=== PATIENT | female | born 1990 | race Caucasian/White ===

== ENCOUNTER → 2016-07-27 | Outpatient (CLI) | payer BC ==
[~2016-07-27] MED LIST: PRENTAB26 PO
== END | disposition home or self-care (01) ==
LOC: C.PAPS 14:50
PROVIDERS: ATTEND Obstetrics & Gynecology
DX: Z01.411 Encounter for gynecological examination (general) (routine) with abnormal findings (principal); R87.610 Atypical squamous cells of undetermined significance on cytologic smear of cervix (ASC-US)

== ENCOUNTER → 2016-07-27 | Outpatient (CLI) | payer BC ==
[2016-07-27 19:13] LABS: MEAN CELL VOLUME 90.1 fL (80-100); MEAN CORPUSCULAR HEMOGLOBIN 30.8 pg (25-34); MEAN CORPUSCULAR HGB CONC 34.1 g/dl (32-36); MEAN PLATELET VOLUME 9.9 fL (7.4-10.4); PLATELET COUNT 280 K/uL (130-400); RED BLOOD COUNT 4.55 M/uL (4.2-5.4); WHITE BLOOD COUNT 5.64 K/uL (4.8-10.8)
[2016-07-27 20:00] LABS: PREG INTERNAL NEGATIVE QC NEG CLEAR BACKGROUND; PREG INTERNAL POSITIVE QC POS CONTROL LINE
== END | disposition home or self-care (01) ==
LOC: C.LAB 17:38
PROVIDERS: ATTEND Obstetrics & Gynecology
DX: Z01.419 Encounter for gynecological examination (general) (routine) without abnormal findings (principal); N92.1 Excessive and frequent menstruation with irregular cycle

== ENCOUNTER → 2016-10-05 | Outpatient (CLI) | payer BC | END | disposition home or self-care (01) | LOC: C.PATHSPEC 15:47 | PROVIDERS: ATTEND Obstetrics & Gynecology | DX: N87.0 Mild cervical dysplasia (principal); N91.2 Amenorrhea, unspecified ==

== ENCOUNTER → 2016-10-05 | Outpatient (CLI) | payer BC ==
[2016-10-05 13:40] LABS: PREG INTERNAL NEGATIVE QC NEG CLEAR BACKGROUND; PREG INTERNAL POSITIVE QC POS CONTROL LINE
== END | disposition home or self-care (01) ==
LOC: C.LABSPEC 13:21
PROVIDERS: ATTEND Obstetrics & Gynecology
DX: N91.2 Amenorrhea, unspecified (principal)

== ENCOUNTER 2017-01-04 10:15 | Emergency (ER) | payer BC ==
[~2017-01-04] VITALS: Ht 165.1 cm; Wt 73.0 kg
[2017-01-04 10:28] VITALS: TEMP 36.8; Ht 165.1 cm; Wt 73.0 kg
[2017-01-04 10:39] VITALS: O2SAT 95
[2017-01-04 12:17] VITALS: PULSE 69; O2SAT 98
[2017-01-04 12:26] LABS: URINE APPEARANCE CLEAR (CLEAR); URINE BILIRUBIN NEG (NEG); URINE COLOR YELLOW; URINE NITRITE NEG (NEG); URINE PH 7.5 (4.5-7.5); URINE SPECIFIC GRAVITY 1.014 (1.000-1.030); UROBILINOGEN NEG (NEG)
[2017-01-04 12:27] LABS: COMPLETE YES; EOS % 0.1 %; HEMATOCRIT 43.5 % (37-47); IG% 0.2 %; LYMPH % 20.7 %; LYMPH ABS # 1.81 K/uL (1.2-3.4); MEAN CELL VOLUME 90.8 fL (80-100); MEAN CORPUSCULAR HEMOGLOBIN 31.9 pg (25-34); MEAN CORPUSCULAR HGB CONC 35.2 g/dl (32-36); MEAN PLATELET VOLUME 10.2 fL (7.4-10.4); MONO % 3.2 %; NEUT % 75.8 %; PLATELET COUNT 247 K/uL (130-400); RED BLOOD COUNT 4.79 M/uL (4.2-5.4); WHITE BLOOD COUNT 8.74 K/uL (4.8-10.8)
[2017-01-04 12:29] LABS: PROTHROMBIN TIME (PATIENT) 10.4 SECONDS (9.0-12.0)
[2017-01-04 12:35] LABS: MANUAL MICROSCOPIC REQUIRED? NO; REVIEW REQ? NO
[2017-01-04 12:46] LABS: ALT/SGPT 25 U/L (12-78); BLOOD UREA NITROGEN 9 mg/dl (7-18); BUN/CREATININE RATIO 10.5 (10-20); CALCIUM 9.6 mg/dl (8.5-10.1); CARBON DIOXIDE 26 mmol/L (21-32); CHLORIDE 107 mmol/L (98-107); CREATININE 0.87 mg/dl (0.60-1.20); GLUCOSE 92 mg/dl (70-99); POTASSIUM 3.8 mmol/L (3.5-5.1); SODIUM 139 mmol/L (136-145)
[2017-01-04 12:50] LABS: PREG INTERNAL NEGATIVE QC NEG CLEAR BACKGROUND; PREG INTERNAL POSITIVE QC POS CONTROL LINE
[2017-01-04 12:56] LABS: ALB/GLOB RATIO 0.9 (0.9-2); ALKALINE PHOSPHATASE 58 U/L (45-117); AST/SGOT 13 U/L (15-37); CKMB/CK RATIO 0.6 (0-3.0); THYROID STIMULATING HORMONE 0.904 uIu/ml (0.300-4.500)
[2017-01-04] MEDS ORDERED: SODIUM CHLORIDE 0.9% 1000ML 500 ML IV STA (13:18)
--- NOTE | 2017-01-04 13:19 | DIAGNOSTIC IMAGING REPORT ---
CHEST 2 VIEWS ROUTINE CLINICAL HISTORY: 26 years-old Female presenting with DIZZINESS, SYNCOPAL EPISODE . TECHNIQUE: PA and lateral views of the chest were obtained. COMPARISON: None. FINDINGS: Cardiomediastinal silhouette normal. Lungs and pleural spaces clear. Osseous structures normal. Upper abdomen normal. IMPRESSION: 1. No acute cardiopulmonary disease. Electronically signed by: Yvon Mooney M.D. 01/04/2017 1:17 PM Dictated Date/Time: 01/04/2017 1:17 PM
[2017-01-04] MEDS ORDERED: OPTIRAY 320 IV PRN (13:30)
--- NOTE | 2017-01-04 13:59 | DIAGNOSTIC IMAGING REPORT ---
(CHEST FOR PE) ANGIO WITH CLINICAL HISTORY: 26 years-old Female presenting with ^EVAL CHEST PAIN ^CHEST PAIN, SYNCOPE, ANXIETY. TECHNIQUE: Multidetector CT angiography of the chest was performed after administration of intravenous contrast. 3-D volumetric and/or maximum intensity projection (MIP) images were subsequently reconstructed for review. IV contrast: 88 mL of Optiray 320. A dose lowering technique was used consistent with the principles of ALARA (as low as reasonably achievable). COMPARISON: Chest x-ray performed earlier the same day. CT DOSE (mGy.cm): The estimated cumulative dose is 234.65 mGy.cm. FINDINGS: Pattern Cleaner topogram: Unremarkable. Pulmonary vasculature: The study is adequate for assessment of the pulmonary vascular tree. No filling defect within the pulmonary arteries to suggest embolus. Main pulmonary artery is not enlarged. No flattening of the interventricular septum. No intracardiac intracardiac filling defect. No reflux of contrast into the hepatic veins. Remaining chest: On soft tissue windows, normal thyroid and thoracic inlet. Residual thymic tissue. No axillary, supraclavicular, hilar, or mediastinal lymphadenopathy. Normal aorta. Normal heart size. No pericardial or pleural effusion. Upper abdomen normal. On lung windows, mild diffuse increased density of the lungs diffusely with a dependent gradient, possibly due to the phase of respiration and atelectasis. No focal infiltrate. Mosaic attenuation at the lung bases could suggest small airways disease. Large airways patent. On bone windows, gas in the left glenohumeral joint likely vacuum phenomenon possibly indicating joint laxity. Osseous structures otherwise normal. IMPRESSION: 1. No evidence of pulmonary embolus. 2. Possible reactive small airways disease. No focal infiltrate to suggest pneumonia. Electronically signed by: Yvon Mooney M.D. 01/04/2017 1:58 PM Dictated Date/Time: 01/04/2017 1:52 PM
--- NOTE | 2017-01-04 14:24 | EMERGENCY ROOM VISIT NOTE ---
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 pt states she needs a new primary to adjust her medications they are not working pt reports currently having menstrol and bleeds heavy, currently has flow two times a month pt is on birthcontrol History of Present Illness Patient is a 26-year-old white female with past medical history significant for anxiety, depression and menometrorrhagia who is brought to the emergency department by [facility] for evaluation of a syncopal episode at work today. Patient reports a history of anxiety and depression, but she stopped her Buspar and Effexor on her home about a month ago. She states that she fell at a were not helping. She is in between primary care providers as she has moved recently, and would like to become established with Dr. Henry, but has not been able to see him yet. The patient does admit that she has been experiencing increased anxiety and panic attacks recently, she reports being under a lot of stress due to "personal issues." Patient also reports a long- standing history of heavy, irregular menses. The site being on an oral contraceptive, she reports having her period 2 times per month. They're painful , heavy, and she states that she passes large clots. She is currently menstruating. She is being followed by Dr. Hilario for this, and it has been an issue for many years. Patient reports that yesterday she didn't feel well. He felt dizzy when she woke up to go to work, and felt like she was going to pass out. She stayed home from work, and reports she felt nauseous and had several episodes of vomiting yesterday. She has not eaten anything in over 24 hours. Today, she states that she still felt poorly but went into work. Around 9:30, she states that she stood from her desk chair and felt dizzy. She states that she started to feel like she was falling backwards, states that her vision went black, and she went down to the ground where her coworkers say that her eyes rolled back in her head slightly. She states that she was only out for a few seconds and when she came to, she was shaky and had broken out in a cold sweat. She states that she felt back to her baseline after about 5-7 minutes. There was no seizure-like activity including tonic-clonic movements, tongue biting or incontinence. She states that she did have some chest pressure and shortness of breath associated with the syncopal episode, but she believes that this was because of the anxiety. She feels like her symptoms are entirely anxiety related. There is no prior history of syncope other than one incident when she was . She has not eaten today. BSG was not checked en route. At the present time the patient has no complaints. Review of Systems Review of systems as per HPI. All other systems reviewed were negative. 10 systems reviewed. Past Medical/Surgical History Medical Problems: (1) Anxiety and depression (2) Excessive And Frequent Menstruation With Irregular Cycle (3) Headache (4) Nausea, vomiting, and diarrhea (5) Pelvic pressure in (6) Syncope Surgical Problems: (1) History of tonsillectomy and adenoidectomy (2) History of wisdom tooth extraction Electronic medical records are reviewed and summarized as above/below. See Problem List. Family History FH: brain aneurysm Social History Smoking Status: Former Smoker Alcohol Use: none Marital Status: in relationship Occupation Status: employed Current/Historical Medications Scheduled Multivit/Min/Iron/Fol Ac/Pren ( Vitamin), 1 TAB PO DAILY Physical Exam Vital Signs Date Time Temp Pulse Resp B/P (MAP) Pulse Ox O2 Delivery O2 Flow Rate FiO2 01/04/17 14:58 122/76 01/04/17 12:17 69 124/84 131/95 141/95 01/04/17 12:17 69 18 124/84 98 Room Air 01/04/17 10:39 95 Room Air 01/04/17 10:28 36.8 79 18 127/85 95 Room Air 01/04/17 10:23 83 Physical Exam CONSTITUTIONAL: Patient is a pleasant, well-appearing 26-year-old white female who is awake and alert and in no acute distress. EYES: Pupils equal, round, reactive to light and accommodation. EOMs intact without nystagmus. Sclera are anicteric. ENT: Tympanic membranes intact, with normal landmarks. External canals are clear. Oral and nasopharynx are clear. Mucous membranes are moist, no lesions , tongue and gums appear normal. NECK: No bruits auscultated. Supple without lymphadenopathy. No thyromegaly. No meningeal signs. Full active range of motion without discomfort. CARDIOVASCULAR: Regular rate and rhythm, with normal S1 and S2, no murmur or gallop or rub is heard. No carotid bruits auscultated. No JVD. Peripheral pulses easy to palpable. RESPIRATORY: Breath sounds equal and clear to auscultation without wheezes, rales, or rhonchi heard. Full and equal chest expansion without accessory muscle use or retractions. GI: Bowel sounds are present. Abdomen is soft, nontender, nondistended. No organomegaly. No pulsatile masses. No guarding or rebound. MUSCULOSKELETAL: Full range of motion of extremities x 4 with good strength. No cyanosis, edema, joint tenderness or swelling. No deformity. INTEGUMENTARY: No lesions or rash, normal skin turgor. NEUROLOGICAL: Alert, oriented, and cooperative. Cranial nerves, sensation and strength grossly intact. Pupils round, equal, and react to light, EOMs are full. Upper and lower extremity DTRs are equal and symmetrical bilaterally. Negative Romberg and pronator chest. Finger to nose and rapid alternating movements are intact. Normal gait. LYMPH: No lymphadenopathy. Medical Decision & Procedures ER Provider Diagnostic Interpretation: CHEST FOR PE) ANGIO WITH CLINICAL HISTORY: 26 years-old Female presenting with ^EVAL CHEST PAIN ^CHEST PAIN, SYNCOPE, ANXIETY. TECHNIQUE: Multidetector CT angiography of the chest was performed after administration of intravenous contrast. 3-D volumetric and/or maximum intensity projection (MIP) images were subsequently reconstructed for review. IV contrast: 88 mL of Optiray 320. A dose lowering technique was used consistent with the principles of ALARA (as low as reasonably achievable). COMPARISON: Chest x-ray performed earlier the same day. CT DOSE (mGy.cm): The estimated cumulative dose is 234.65 mGy.cm. FINDINGS: Tray Service Worker topogram: Unremarkable. Pulmonary vasculature: The study is adequate for assessment of the pulmonary vascular tree. No filling defect within the pulmonary arteries to suggest embolus. Main pulmonary artery is not enlarged. No flattening of the interventricular septum. No intracardiac intracardiac filling defect. No reflux of contrast into the hepatic veins. Remaining chest: On soft tissue windows, normal thyroid and thoracic inlet. Residual thymic tissue. No axillary, supraclavicular, hilar, or mediastinal lymphadenopathy. Normal aorta. Normal heart size. No pericardial or pleural effusion. Upper abdomen normal. On lung windows, mild diffuse increased density of the lungs diffusely with a dependent gradient, possibly due to the phase of respiration and atelectasis. No focal infiltrate. Mosaic attenuation at the lung bases could suggest small airways disease. Large airways patent. On bone windows, gas in the left glenohumeral joint likely vacuum phenomenon possibly indicating joint laxity. Osseous structures otherwise normal. IMPRESSION: 1. No evidence of pulmonary embolus. 2. Possible reactive small airways disease. No focal infiltrate to suggest pneumonia. CHEST 2 VIEWS ROUTINE CLINICAL HISTORY: 26 years-old Female presenting with DIZZINESS, SYNCOPAL EPISODE . TECHNIQUE: PA and lateral views of the chest were obtained. COMPARISON: None. FINDINGS: Cardiomediastinal silhouette normal. Lungs and pleural spaces clear. Osseous structures normal. Upper abdomen normal. IMPRESSION: 1. No acute cardiopulmonary disease. Laboratory Results 01/04/17 12:00 Red Blood Count 4.79, Mean Corpuscular Volume 90.8, Mean Corpuscular Hemoglobin 31.9, Mean Corpuscular Hemoglobin Concent 35.2, Mean Platelet Volume 10.2, Neutrophils (%) (Auto) 75.8, Lymphocytes (%) (Auto) 20.7, Monocytes (%) (Auto) 3.2, Eosinophils (%) (Auto) 0.1, Basophils (%) (Auto) 0.0, Neutrophils # (Auto) 6.62, Lymphocytes # (Auto) 1.81, Monocytes # (Auto) 0.28, Eosinophils # (Auto) 0.01, Basophils # (Auto) 0.00 01/04/17 12:00 Test 01/04/17 12:00 01/04/17 12:15 White Blood Count 8.74 K/uL (4.8-10.8) Red Blood Count 4.79 M/uL (4.2-5.4) Hemoglobin 15.3 g/dL (12.0-16.0) Hematocrit 43.5 % (37-47) Mean Corpuscular Volume 90.8 fL (80-100) Mean Corpuscular Hemoglobin 31.9 pg (25-34) Mean Corpuscular Hemoglobin Concent 35.2 g/dl (32-36) Platelet Count 247 K/uL (130-400) Mean Platelet Volume 10.2 fL (7.4-10.4) Neutrophils (%) (Auto) 75.8 % Lymphocytes (%) (Auto) 20.7 % Monocytes (%) (Auto) 3.2 % Eosinophils (%) (Auto) 0.1 % Basophils (%) (Auto) 0.0 % Neutrophils # (Auto) 6.62 K/uL (1.4-6.5) Lymphocytes # (Auto) 1.81 K/uL (1.2-3.4) Monocytes # (Auto) 0.28 K/uL (0.11-0.59) Eosinophils # (Auto) 0.01 K/uL (0-0.5) Basophils # (Auto) 0.00 K/uL (0-0.2) RDW Standard Deviation 40.5 fL (36.4-46.3) RDW Coefficient of Variation 12.1 % (11.5-14.5) Immature Granulocyte % (Auto) 0.2 % Immature Granulocyte # (Auto) 0.02 K/uL (0.00-0.02) Prothrombin Time 10.4 SECONDS (9.0-12.0) Prothromb Time International Ratio 1.0 (0.9-1.1) Activated Partial Thromboplast Time 27.1 SECONDS (21.0-31.0) Partial Thromboplastin Ratio 1.0 Urine Color YELLOW Urine Appearance CLEAR (CLEAR) Urine pH 7.5 (4.5-7.5) Urine Specific [place] 1.014 (1.000-1.030) Urine Protein NEG (NEG) Urine Glucose (UA) NEG (NEG) Urine Ketones NEG (NEG) Urine Occult Blood NEG (NEG) Urine Nitrite NEG (NEG) Urine Bilirubin NEG (NEG) Urine Urobilinogen NEG (NEG) Urine Leukocyte Esterase NEG (NEG) Anion Gap 7.0 mmol/L (3-11) Est Creatinine Clear Calc Drug Dose 98.1 ml/min Estimated GFR () 106.6 Estimated GFR (Non- 91.9 BUN/Creatinine Ratio 10.5 (10-20) Calcium Level 9.6 mg/dl (8.5-10.1) Total Bilirubin 0.4 mg/dl (0.2-1) Aspartate Amino Transf (AST/SGOT) 13 U/L (15-37) Alanine Aminotransferase (ALT/SGPT) 25 U/L (12-78) Alkaline Phosphatase 58 U/L (45-117) Total Creatine Kinase 122 U/L (26-192) Creatine Kinase MB 0.7 ng/ml (0.5-3.6) Creatine Kinase MB Ratio 0.6 (0-3.0) Troponin I < 0.015 ng/ml (0-0.045) Total Protein 8.7 gm/dl (6.4-8.2) Albumin 4.0 gm/dl (3.4-5.0) Globulin 4.7 gm/dl (2.5-4.0) Albumin/Globulin Ratio 0.9 (0.9-2) Thyroid Stimulating Hormone (TSH) 0.904 uIu/ml (0.300-4.500) Human Chorionic Gonadotropin, Qual NEG (NEG) Bedside D-Dimer > 450 ng/mlFEU (0-450) Medications Administered Medications (Trade) Dose Ordered Sig/Damien Route Start Time Stop Time Status Last Admin Dose Admin Sodium Chloride 500 ml @ 999 mls/hr Q31M STAT IV 01/04/17 13:18 01/04/17 13:48 DC 01/04/17 13:18 999 MLS/HR ECG Indication: syncope Rate (beats per minute): 68 Rhythm: sinus with SA Findings: no acute ischemic change, no ectopy Change: no significant change ED Course The patient was seen and evaluated as above. Her old records are reviewed. She presents the emergency department for evaluation of a syncopal episode at work today, in the setting of heavy, irregular menstruation, and an episode of nausea and vomiting 24 hours yesterday. She also reports being under increased stress and has been off of her anxiety and depression medications. She feels that a panic attack may have also played a role in her symptoms this morning. Patient was not orthostatic with vitals. IV lock was initiated. Laboratory studies were collected including CBC with differential, coags, cardiac enzymes, TSH, serum hCG and a [id number] d- dimer. EKG was performed and was as noted above. Chest x-ray was obtained and was unremarkable. Laboratory studies noted a normal white count of the 8700. H&H is 15.3 and 43.5. Platelets and coags are normal. [id number] d-dimer is greater than 450. Electrolytes, renal functions and liver functions are within normal limits. Cardiac enzymes are negative 1. Serum hCG is negative. TSH is indicative of a euthyroid state. Urinalysis completely clear. Given the elevated d-dimer, syncope with associated chest pain and shortness of breath, chest CT with contrast was performed to evaluate for PE, and was negative. The patient was given a liter of normal saline solution IV bolus prior to CT scan. All laboratory and diagnostic imaging studies were reviewed with the patient. I suspect her symptoms today are multifactorial, certainly could be an anxiety/ panic component. Possibility of her being dehydrated or anemic due to her heavy menstruation, and her nausea and vomiting from yesterday was entertained. Differential also includes, seizure, arrhythmia, acute coronary syndrome, orthostasis, dehydration, electrolyte abnormalities, anemia, hypoglycemia, among others. Patient reports that she is planning to become established with Dr. Henry, but has not been able to secure an appointment at this time. She was encouraged to follow-up with him for review of the ED visit, and to discuss her psychiatric medications for better control of her symptoms. She is presently established with gynecology for her excessive menstruation. The patient was discharged home in stable condition accompanied by family members. Medical Decision See ED Course. Medication Reconcilliation Current Medication List: was personally reviewed by me Blood Pressure Screening Patient's blood pressure: Normal blood pressure Blood pressure disposition: Did not require urgent referral Impression Primary Impression: Syncope Departure Information Referrals Salima Rosen M.D. (PCP) Patient Instructions My [employer] Additional Instructions Rest and drink plenty of fluids as tolerated. Continue current medications. Eat a heart healthy, low fat, low cholesterol diet. Return to the ER immediately for passing out, headache, rapid heart rates, chest pains, difficulty breathing, black or bloody stools, slurred speech, numbness, weakness, visual changes, worsening of your condition, or as needed. Refrain from dangerous activities, operating machinery, drinking alcohol, and such until you are rechecked at a follow up appointment. Follow up with your primary physician in 2-3 days for a recheck of your current condition.
[2017-01-04 14:58] VITALS: BP 122/76
== END 2017-01-04 14:35 | disposition home or self-care (01) ==
LOC: EDBD 10:15 → EDSEX 10:15 → C.EDA 10:16
DX: R55 Syncope and collapse (principal); F41.9 Anxiety disorder, unspecified; F32.9 Major depressive disorder, single episode, unspecified; N92.1 Excessive and frequent menstruation with irregular cycle; Z79.3 Long term (current) use of hormonal contraceptives; Z87.891 Personal history of nicotine dependence; Z82.49 Family history of ischemic heart disease and other diseases of the circulatory system

== ENCOUNTER → 2017-01-23 | Outpatient (CLI) | payer BC ==
[2017-01-23 15:42] LABS: BASO % 0.1 %; BASO ABS # 0.01 K/uL (0-0.2); COMPLETE YES; EOS % 0.7 %; HEMATOCRIT 37.3 % (37-47); IG% 0.1 %; LYMPH % 38.2 %; LYMPH ABS # 2.84 K/uL (1.2-3.4); MEAN CELL VOLUME 90.5 fL (80-100); MEAN CORPUSCULAR HEMOGLOBIN 31.6 pg (25-34); MEAN CORPUSCULAR HGB CONC 34.9 g/dl (32-36); MEAN PLATELET VOLUME 10.4 fL (7.4-10.4); MONO % 5.7 %; NEUT % 55.2 %; PLATELET COUNT 194 K/uL (130-400); RED BLOOD COUNT 4.12 M/uL (4.2-5.4); WHITE BLOOD COUNT 7.43 K/uL (4.8-10.8)
[2017-01-23 16:23] LABS: FERRITIN 30.7 ng/ml (8.0-388.0); THYROID STIMULATING HORMONE 0.638 uIu/ml (0.300-4.500)
== END | disposition home or self-care (01) ==
LOC: C.LAB 14:57
DX: R53.83 Other fatigue (principal); D64.9 Anemia, unspecified

== ENCOUNTER → 2017-04-17 | Outpatient (CLI) | payer OTHER ==
[2017-04-17 16:53] LABS: BASO % 0.2 %; BASO ABS # 0.01 K/uL (0-0.2); EOS ABS # 0.06 K/uL (0-0.5); HEMATOCRIT 39.4 % (37-47); HEMOGLOBIN 13.6 g/dL (12.0-16.0); LYMPH ABS # 1.75 K/uL (1.2-3.4); MEAN CELL VOLUME 92.9 fL (80-100); MEAN CORPUSCULAR HEMOGLOBIN 32.1 pg (25-34); MEAN CORPUSCULAR HGB CONC 34.5 g/dl (32-36); MEAN PLATELET VOLUME 9.9 fL (7.4-10.4); MONO % 8.9 %; MONO ABS # 0.56 K/uL (0.11-0.59); NEUT % 61.9 %; NEUT ABS # 3.88 K/uL (1.4-6.5); PLATELET COUNT 211 K/uL (130-400); RED CELL DISTRIBUTION WIDTH SD 43.9 fL (36.4-46.3); WHITE BLOOD COUNT 6.26 K/uL (4.8-10.8)
== END | disposition home or self-care (01) ==
LOC: C.LAB 15:46
DX: D64.9 Anemia, unspecified (principal); R55 Syncope and collapse

== ENCOUNTER 2018-11-26 18:45 | Inpatient (IN) ==
[2018-11-26] MEDS ORDERED: SODIUM CHLORIDE 0.9% 1000ML 2,000 ML IV ONE (19:53)
[2018-11-26] MEDS ORDERED: KETOROLAC TROMETHAMINE 15 MG/ML VIAL IV STA ×2 (19:53→21:32)
[2018-11-26] MEDS ORDERED: ACETAMINOPHEN 1,000 MG/100 ML VIAL IV STA (19:53)
[2018-11-26] MEDS ORDERED: MoRPHine SULFATE 10 MG/ML CARP/VIAL IV STA ×3 (19:53→22:31)
[2018-11-26] MEDS ORDERED: ONDANSETRON INJ 2 MG/ML 2 ML VIAL IV STA (20:00)
[2018-11-26 20:33] LABS: Basophils # (auto) 0.01 K/uL (0-0.2); Basophils % (auto) 0.1 %; Eosinophils # (auto) 0.08 K/uL (0-0.5); Eosinophils % (auto) 0.6 %; Hematocrit (blood only) 38.5 % (37-47); Hemoglobin 14.2 g/dL (12.0-16.0); Immature Granulocytes # (auto) 0.03 K/uL (0.00-0.02); Immature Granulocytes % (auto) 0.2 %; Lymphocytes % (auto) 14.5 %; Mean Corpuscular Hemoglobin 33.6 pg (25-34); Mean Corpuscular Hgb Conc 36.9 g/dL (32-36); Mean Platelet Volume 10.3 fL (7.4-10.4); Monocytes # (auto) 1.13 K/uL (0.11-0.59); Monocytes % (auto) 8.2 %; Neutrophils % (auto) 76.4 %; Platelet Count 208 K/uL (130-400); RDW Coefficient of Variation 11.9 % (11.5-14.5); RDW Standard Deviation 40.1 fL (36.4-46.3); Red Blood Count 4.23 M/uL (4.2-5.4); White Blood Count 13.75 K/uL (4.8-10.8)
[2018-11-26 20:37] LABS: Appearance Urine Cloudy (Clear); Bacteria Urine Automated 4+ (Negative); Bilirubin Urine Negative (Negative); Blood Urine 3+ (Negative); Color Urine Yellow; Glucose Urine UA Negative (Negative); Ketones Urine Negative (Negative); Leukocyte Esterase Urine 2+ (Negative); Nitrite Urine Negative (Negative); Protein Urine 2+ (Negative); Urobilinogen Urine Negative (Negative); WBC Urine Automated >30 /hpf (0-5); pH Urine 5.5 (4.5-7.5)
[2018-11-26 20:42] LABS: iSTAT Creatinine 0.7 mg/dl (0.6-1.3); iSTAT Hemoglobin 14.6 g/dl (12.0-16.0); iSTAT Ionized Calcium 1.2 mmol/l (1.12-1.32); iSTAT Potassium 3.5 mEq/L (3.3-5.0)
[2018-11-26 20:53] LABS: Albumin Level 4.3 gm/dl (3.4-5.0); BUN Creatinine Ratio 11.5 (10-20); Calcium 9.2 mg/dl (8.5-10.1); Creatinine Clr Calc Pharmacy 91.9 ml/min; Est GFR (African American) 112.9; Est GFR (Non-African American) 97.4; Potassium 3.4 mmol/L (3.5-5.1); Pregnancy Test, Serum Negative (Negative)
[2018-11-26 20:57] LABS: Bilirubin,Total 0.9 mg/dl (0.2-1); Globulin 4.4 gm/dl (2.5-4.0); Total Protein 8.7 gm/dl (6.4-8.2)
[2018-11-26] MEDS ORDERED: IOVERSOL 100ml IV PRN (21:36)
[2018-11-26] MEDS ORDERED: ONDANSETRON 4 MG OD TAB PO STA (22:17)
[2018-11-26] MEDS ORDERED: ONDANSETRON INJ 2 MG/ML 2 ML VIAL IV PRN (22:20)
--- NOTE | 2018-11-26 22:21 | CT Scan Report ---
CT SCAN OF THE ABDOMEN AND PELVIS WITH IV CONTRAST CLINICAL HISTORY: Right flank pain. COMPARISON STUDY: Abdominal CT dated 05/24/2012. TECHNIQUE: Following the IV administration of 90 cc of Optiray 320, CT scan of the abdomen and pelvi s is performed from the lung bases to the proximal femora. Images are reviewed in the axial, sagittal , and coronal planes. IV contrast was administered without complication. A dose lowering technique wa s utilized adhering to the principles of ALARA. CT DOSE: 278.75 mGy.cm FINDINGS: Lung bases: The heart is normal in size and without pericardial effusion. The lung bases are clear. Liver: The contrast-enhanced liver is normal in size, contour, and attenuation. There is no intrahepa tic biliary ductal dilatation. The hepatic veins and portal veins are patent. Mild periportal edema i s likely related to hydration status. Gallbladder: Unremarkable. Spleen: Normal in size and attenuation. Pancreas: Unremarkable. Adrenal glands: Unremarkable. Kidneys: The contrast enhanced kidneys are normal in size and without hydronephrosis. There is hetero geneous enhancement of the right kidney with a striated nephrogram. Mild urothelial thickening and en hancement is noted in the right renal pelvis and involving the right ureter. The left kidney enhances homogeneously. Abdominal vasculature: The abdominal aorta is normal in course and caliber. Bowel: The small bowel and colon are normal in course and caliber. The appendix is normal as visuali zed. Peritoneum: There is no intraperitoneal free air or abdominal ascites. Lymphadenopathy: None. Pelvic viscera: The bladder wall appears thickened and hyperemic and there is pericystic inflammation . The uterus and adnexa are normal as visualized. There are bilateral ovarian follicles. Nonspecific free fluid is noted in the cul-de-sac. Skeletal structures: No lytic or blastic lesions are seen. IMPRESSION: 1. Findings suggest cystitis and right-sided pyelonephritis. Correlation with clinical findings and u rinalysis will be required. 2. Nonspecific free fluid in cul-de-sac is likely within physiologic limits. Electronically signed by: Isrrael Mathew M.D. 11/26/2018 10:19 PM
[2018-11-26] MEDS ORDERED: cefTRIAXone SODIUM 2,000 MG/70 ML BAG IV STA (22:31)
[2018-11-26] MEDS ORDERED: PROCHLORPERAZINE 2 ML IV ONE (23:08)
--- NOTE | 2018-11-27 01:12 | History & Physical Report ---
Date of Service November 27, 2018 Assessment & Plan (1) Pyelonephritis: Patient afebrile, hemodynamically stable. She has significant symptoms, pain and nausea - received Morphine x 12 mg and Toradol x 15mg thus far -Observation to medical floor -Follow cultures, urine and blood sent from ER -Ceftriaxone 1gm IV daily -Morphine 2mg IV q 4 hours as needed -Toradol 15mg IV q 6 hours PRN -Tylenol PRN F/E/N - NSS at 125mL/hr x 2 liters, monitor electrolytes and replete as needed, regular diet as tolerated Ppx - Low risk for DVT Code - Full Dispo - Observation to medical floor Present on Admission?: Yes History of Present Illness Chief Complaint: Pyelonephritis Primary Care Provider: Ceasar Henry Jr, DO Beatrice Farrar is a pleasant 28yo C female presenting with pyelonephritis. She had a few days of increased urinary frequency, no dysuria/hematuria. She developed right flank pain on 11/25/18 which progressively worsened. This AM her pain was very severe, 11/15. She also had nausea with multiple episodes of non-bloody/non-bilious vomiting, chills/sweats, elevated body temperature to 100. She tried to go to work but was unable to complete the day due to her symptoms. She was started on Nitrofurantoin yesterday, took 1 dose thus far. On arrival to the ER she was found to be afebrile, slightly tachycardic at 102 bpm and hypertensive at 159/100. She had severe pain and nausea requiring multiple doses of IV pain medication and anti-emetics. Pain presently improved. No additional complaints at this time. No fevers/chill/sweats, no headache/chest pain/SOB/palpitations/abdominal pain/diarrhea/constipation ER Course: Morphine 6mg IV x 2, Toradol 15mg IV x 2, Tylenol 1gm IV x 1, Zofran 4mg IV x 2, Prochlorperazine, Ceftriaxone x 2gm, NSS Allergies Allergy/AdvReac Type Severity Reaction Status Date / Time No Known Allergies Allergy Verified 11/26/18 19:45 Home Medications Home Medications Medication Instructions Recorded Confirmed Type nitrofurantoin macrocrystal 100 mg PO BID 11/26/18 11/26/18 History Past Med/Surg History Medical History ASCUS with positive high risk HPV cervical Goiter H/O varicella Positive GBS test Surgical History H/O oral surgery History of conization of cervix History of lingual frenotomy S/P dilation and curettage S/P tonsillectomy Family History Mother Colorectal cancer Thyroid disease Grandmother (Maternal) Lung cancer Father Kidney stones Other Cleft palate Social History Preferred Language: Vietnamese Feels Safe at Home: Yes Smoking Status: Current every day smoker Tobacco Type: cigarettes ; packs per day: 0.5 ; Cigarettes Per Day: 10 ; Hx Alcohol Use: Yes Alcohol Intake Frequency: Holidays/Special Occasions Hx Substance Use: No Review of Systems Review of Systems: All systems reviewed & are unremarkable except as noted in HPI & below Physical Exam Physical Exam: General: patient resting comfortably, NAD, non-toxic in appearance, AA&O x 4 Skin: warm, dry, intact, no rashes or lesions HEENT: NC/AT, PERRL, EOMI, anicteric sclera, conjunctiva without injection, ext ernal ear normal to inspection and nontender, nares patent, moist mucus membranes, dentition intact, no oropharyngeal lesions, neck supple, trachea midline, no LAD, no thyromegaly, no JVD Heart: +S1/S2, regular, no m/r/g Lungs: equal air entry bilaterally, no rales/rhonchi/wheezes Abd: +BS, soft, NT/ND, no masses/organomegaly/ascites, +CVA tenderness on right Ext: warm, 2+ pulses in UE/LE bilaterally, no clubbing/cyanosis or edema Neuro: nonfocal, patient AA&O x 4, speech intact, no facial droop, moving all extremities on command with equal strength 5/5 Results & Data Vital Signs (Past 12 Hours) Vital Signs Temp Pulse Pulse Resp BP BP Pulse Ox 11/26/18 23:27 63 18 122/84 97 11/26/18 21:09 89 20 110/73 98 11/26/18 20:25 84 18 136/79 98 11/26/18 18:54 36.9 C 102 H 18 159/100 H 100 Laboratory Results Lab Results 11/26/18 11/26/18 11/26/18 Range/Units 20:10 20:10 20:20 WBC 13.75 H (4.8-10.8) K/uL RBC 4.23 (4.2-5.4) M/uL Hgb 14.2 (12.0-16.0) g/dL POC Hgb (12.0-16.0) g/dl Hct 38.5 (37-47) % POC Hct (37-47) % MCV 91.0 (80-100) fL MCH 33.6 (25-34) pg MCHC 36.9 H (32-36) g/dL RDW Std Deviation 40.1 (36.4-46.3) fL RDW Coeff of David 11.9 (11.5-14.5) % Plt Count 208 (130-400) K/uL MPV 10.3 (7.4-10.4) fL Immature Gran % (Auto) 0.2 % Neut % (Auto) 76.4 % Lymph % (Auto) 14.5 % [place] % (Auto) 8.2 % Eos % (Auto) 0.6 % Baso % (Auto) 0.1 % Immature Gran # (Auto) 0.03 H (0.00-0.02) K/uL Neut # (Auto) 10.50 H (1.4-6.5) K/uL Lymph # (Auto) 2.00 (1.2-3.4) K/uL [place] # (Auto) 1.13 H (0.11-0.59) K/uL Eos # (Auto) 0.08 (0-0.5) K/uL Baso # (Auto) 0.01 (0-0.2) K/uL POC Sodium (135-144) mEq/L Sodium (136-145) mmol/L POC Potassium (3.3-5.0) mEq/L Potassium (3.5-5.1) mmol/L POC Chloride (101-112) mEq/L Chloride (98-107) mmol/L Carbon Dioxide (21-32) mmol/L POC Total CO2 (24-31) mEq/l Anion Gap (3-11) POC Anion Gap (16-25) mmol/L POC BUN (7-18) mg/dl BUN (7-18) mg/dl Creatinine (0.6-1.2) mg/dl POC Creatinine (0.6-1.3) mg/dl Est Cr Clr Drug Dosing ml/min Est GFR ( Amer) Est GFR (Non-Af Amer) BUN/Creatinine Ratio (10-20) Glucose (70-99) mg/dl POC Glucose (other) (70-99) mg/dl Lactate (0.4-2.0) mmol/L Calcium (8.5-10.1) mg/dl POC Ioniz Calcium Danny (1.12-1.32) mmol/l Total Bilirubin (0.2-1) mg/dl AST (15-37) U/L ALT (12-78) U/L Alkaline Phosphatase (45-117) U/L Total Protein (6.4-8.2) gm/dl Albumin (3.4-5.0) gm/dl Globulin (2.5-4.0) gm/dl Albumin/Globulin Ratio (0.9-2) Lipase (73-393) U/L HCG, Qual (Negative) Urine Color Yellow Urine Appearance Cloudy A (Clear) Urine pH 5.5 (4.5-7.5) Ur Specific [place] 1.020 (1.000-1.030) Urine Protein 2+ H (Negative) Urine Glucose (UA) Negative (Negative) Urine Ketones Negative (Negative) Urine Blood 3+ H (Negative) Urine Nitrite Negative (Negative) Urine Bilirubin Negative (Negative) Urine Urobilinogen Negative (Negative) Ur Leukocyte Esterase 2+ H (Negative) Urine WBC (Auto) >30 H (0-5) /hpf Urine RBC (Auto) 10-30 H (0-4) /hpf U Hyaline Cast (Auto) 10-30 H (0-5) /lpf U Epithel Cells (Auto) 5-10 H (0-5) /lpf Urine Bacteria (Auto) 4+ H (Negative) POC Ur Test NEG (NEG) 11/26/18 11/26/18 11/26/18 Range/Units 20:20 20:20 20:26 WBC (4.8-10.8) K/uL RBC (4.2-5.4) M/uL Hgb (12.0-16.0) g/dL POC Hgb 14.6 (12.0-16.0) g/dl Hct (37-47) % POC Hct 43 (37-47) % MCV (80-100) fL MCH (25-34) pg MCHC (32-36) g/dL RDW Std Deviation (36.4-46.3) fL RDW Coeff of David (11.5-14.5) % Plt Count (130-400) K/uL MPV (7.4-10.4) fL Immature Gran % (Auto) % Neut % (Auto) % Lymph % (Auto) % [place] % (Auto) % Eos % (Auto) % Baso % (Auto) % Immature Gran # (Auto) (0.00-0.02) K/uL Neut # (Auto) (1.4-6.5) K/uL Lymph # (Auto) (1.2-3.4) K/uL [place] # (Auto) (0.11-0.59) K/uL Eos # (Auto) (0-0.5) K/uL Baso # (Auto) (0-0.2) K/uL POC Sodium 140 (135-144) mEq/L Sodium 137 (136-145) mmol/L POC Potassium 3.5 (3.3-5.0) mEq/L Potassium 3.4 L (3.5-5.1) mmol/L POC Chloride 106 (101-112) mEq/L Chloride 105 (98-107) mmol/L Carbon Dioxide 25 (21-32) mmol/L POC Total CO2 23 L (24-31) mEq/l Anion Gap 7.0 (3-11) POC Anion Gap 16.0 (16-25) mmol/L POC BUN 8 (7-18) mg/dl BUN 10 (7-18) mg/dl Creatinine 0.82 (0.6-1.2) mg/dl POC Creatinine 0.7 (0.6-1.3) mg/dl Est Cr Clr Drug Dosing 91.9 ml/min Est GFR ( Amer) 112.9 Est GFR (Non-Af Amer) 97.4 BUN/Creatinine Ratio 11.5 (10-20) Glucose 97 (70-99) mg/dl POC Glucose (other) 99 (70-99) mg/dl Lactate (0.4-2.0) mmol/L Calcium 9.2 (8.5-10.1) mg/dl POC Ioniz Calcium Danny 1.20 (1.12-1.32) mmol/l Total Bilirubin 0.9 (0.2-1) mg/dl AST 12 L (15-37) U/L ALT 22 (12-78) U/L Alkaline Phosphatase 70 (45-117) U/L Total Protein 8.7 H (6.4-8.2) gm/dl Albumin 4.3 (3.4-5.0) gm/dl Globulin 4.4 H (2.5-4.0) gm/dl Albumin/Globulin Ratio 1.0 (0.9-2) Lipase 84 (73-393) U/L HCG, Qual Negative (Negative) Urine Color Urine Appearance (Clear) Urine pH (4.5-7.5) Ur Specific [place] (1.000-1.030) Urine Protein (Negative) Urine Glucose (UA) (Negative) Urine Ketones (Negative) Urine Blood (Negative) Urine Nitrite (Negative) Urine Bilirubin (Negative) Urine Urobilinogen (Negative) Ur Leukocyte Esterase (Negative) Urine WBC (Auto) (0-5) /hpf Urine RBC (Auto) (0-4) /hpf U Hyaline Cast (Auto) (0-5) /lpf U Epithel Cells (Auto) (0-5) /lpf Urine Bacteria (Auto) (Negative) POC Ur Test (NEG) 11/26/18 Range/Units 23:10 WBC (4.8-10.8) K/uL RBC (4.2-5.4) M/uL Hgb (12.0-16.0) g/dL POC Hgb (12.0-16.0) g/dl Hct (37-47) % POC Hct (37-47) % MCV (80-100) fL MCH (25-34) pg MCHC (32-36) g/dL RDW Std Deviation (36.4-46.3) fL RDW Coeff of David (11.5-14.5) % Plt Count (130-400) K/uL MPV (7.4-10.4) fL Immature Gran % (Auto) % Neut % (Auto) % Lymph % (Auto) % [place] % (Auto) % Eos % (Auto) % Baso % (Auto) % Immature Gran # (Auto) (0.00-0.02) K/uL Neut # (Auto) (1.4-6.5) K/uL Lymph # (Auto) (1.2-3.4) K/uL [place] # (Auto) (0.11-0.59) K/uL Eos # (Auto) (0-0.5) K/uL Baso # (Auto) (0-0.2) K/uL POC Sodium (135-144) mEq/L Sodium (136-145) mmol/L POC Potassium (3.3-5.0) mEq/L Potassium (3.5-5.1) mmol/L POC Chloride (101-112) mEq/L Chloride (98-107) mmol/L Carbon Dioxide (21-32) mmol/L POC Total CO2 (24-31) mEq/l Anion Gap (3-11) POC Anion Gap (16-25) mmol/L POC BUN (7-18) mg/dl BUN (7-18) mg/dl Creatinine (0.6-1.2) mg/dl POC Creatinine (0.6-1.3) mg/dl Est Cr Clr Drug Dosing ml/min Est GFR ( Amer) Est GFR (Non-Af Amer) BUN/Creatinine Ratio (10-20) Glucose (70-99) mg/dl POC Glucose (other) (70-99) mg/dl Lactate 1.1 (0.4-2.0) mmol/L Calcium (8.5-10.1) mg/dl POC Ioniz Calcium Danny (1.12-1.32) mmol/l Total Bilirubin (0.2-1) mg/dl AST (15-37) U/L ALT (12-78) U/L Alkaline Phosphatase (45-117) U/L Total Protein (6.4-8.2) gm/dl Albumin (3.4-5.0) gm/dl Globulin (2.5-4.0) gm/dl Albumin/Globulin Ratio (0.9-2) Lipase (73-393) U/L HCG, Qual (Negative) Urine Color Urine Appearance (Clear) Urine pH (4.5-7.5) Ur Specific [place] (1.000-1.030) Urine Protein (Negative) Urine Glucose (UA) (Negative) Urine Ketones (Negative) Urine Blood (Negative) Urine Nitrite (Negative) Urine Bilirubin (Negative) Urine Urobilinogen (Negative) Ur Leukocyte Esterase (Negative) Urine WBC (Auto) (0-5) /hpf Urine RBC (Auto) (0-4) /hpf U Hyaline Cast (Auto) (0-5) /lpf U Epithel Cells (Auto) (0-5) /lpf Urine Bacteria (Auto) (Negative) POC Ur Test (NEG) Diagnostic Findings CT SCAN OF THE ABDOMEN AND PELVIS WITH IV CONTRAST CLINICAL HISTORY: Right flank pain. COMPARISON STUDY: Abdominal CT dated 05/24/2012. TECHNIQUE: Following the IV administration of 90 cc of Optiray 320, CT scan of the abdomen and pelvis is performed from the lung bases to the proximal femora. Images are reviewed in the axial, sagittal, and coronal planes. IV contrast was administered without complication. A dose lowering technique was utilized adhering to the principles of ALARA. CT DOSE: 278.75 mGy.cm FINDINGS: Lung bases: The heart is normal in size and without pericardial effusion. The lung bases are clear. Liver: The contrast-enhanced liver is normal in size, contour, and attenuation. There is no intrahepatic biliary ductal dilatation. The hepatic veins and portal veins are patent. Mild periportal edema is likely related to hydration status. Gallbladder: Unremarkable. Spleen: Normal in size and attenuation. Pancreas: Unremarkable. Adrenal glands: Unremarkable. Kidneys: The contrast enhanced kidneys are normal in size and without hydronephrosis. There is heterogeneous enhancement of the right kidney with a striated nephrogram. Mild urothelial thickening and enhancement is noted in the right renal pelvis and involving the right ureter. The left kidney enhances homogeneously. Abdominal vasculature: The abdominal aorta is normal in course and caliber. Bowel: The small bowel and colon are normal in course and caliber. The appendix is normal as visualized. Peritoneum: There is no intraperitoneal free air or abdominal ascites. Lymphadenopathy: None. Pelvic viscera: The bladder wall appears thickened and hyperemic and there is pericystic inflammation. The uterus and adnexa are normal as visualized. There are bilateral ovarian follicles. Nonspecific free fluid is noted in the cul-de-sac. Skeletal structures: No lytic or blastic lesions are seen. IMPRESSION: 1. Findings suggest cystitis and right-sided pyelonephritis. Correlation with clinical findings and urinalysis will be required. 2. Nonspecific free fluid in cul-de-sac is likely within physiologic limits. Electronically signed by: Isrrael Mathew M.D. 11/26/2018 10:19 PM Dictated: 11/26/185 Transcribed: 11/26/182214 Code Status & VTE Plan Code Status full VTE Prophylaxis Plan VTE Prophylaxis will be ordered: Yes PG Care Time/CCT Total # of Minutes Spent Total Time Spent with Patient: Total time spent is greater than 50% in coordination of care (as documented) at patient's floor/unit and/or counseling patient:
[2018-11-27] MEDS: MoRPHine SULFATE 2 MG/ML CARP IV PRN ×6 (02:27→21:49)
[2018-11-27] MEDS: LACTATED RINGER'S 1,000 ML IV SCH ×2 (02:41→09:45)
--- NOTE | 2018-11-27 03:45 | Emergency Department Note ---
Entered by Rosa Palacio acting as a scribe for Enoc Fuentes MD History of Present Illness General Chief complaint: Kidney Stone Stated complaint: KIDNEY STONE Time Seen by Provider: 11/26/18 19:31 Source: patient History of Present Illness Onset (ago): day(s) 2 Location: right (flank) Radiation: non-radiation Severity: severe Maximum Pain Intensity: 9 Quality: + other (right sided flank pain) The patient is a 28 year old female who presents to the ED with complaints of right sided flank pain. 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 She denies any personal history of kidney stones but states her father had a kidney stone. She also has nausea, loss of appetite, and a fever of 100. She states a couple of weeks ago, she had a UTI with symptoms of burning with urination. She has a hx of bipolar disorder. Home Medications Home Medications Medication Instructions Recorded Confirmed Type nitrofurantoin macrocrystal 100 mg PO BID 11/26/18 11/26/18 History Allergies Allergy/AdvReac Type Severity Reaction Status Date / Time No Known Allergies Allergy Verified 11/26/18 19:45 Past Med/Surg History Medical History ASCUS with positive high risk HPV cervical Goiter H/O varicella Positive GBS test Surgical History H/O oral surgery History of conization of cervix History of lingual frenotomy S/P dilation and curettage S/P tonsillectomy Family History Mother Colorectal cancer Thyroid disease Grandmother (Maternal) Lung cancer Father Kidney stones Other Cleft palate Social History Preferred Language: Burkinan Communication Ability: Effective 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 and A total of 10 systems reviewed and were otherwise negative Physical Exam Vital Signs Vital Signs - 24 hr 11/26/18 18:54 11/26/18 20:25 11/26/18 21:09 Temperature 36.9 C Temperature Source Oral Sepsis Recent Fever Within 48 Hours No Sepsis New/Unexplained Change in Mental Status No Sepsis Action Taken by Nursing No Action Required Pulse Rate 102 H Pulse Rate [Right Finger] 84 89 Respiratory Rate 18 18 20 Respiratory Effort / Characteristics Non-Labored Respiratory Depth Normal Blood Pressure 159/100 H Blood Pressure [Left Arm] 136/79 110/73 Blood Pressure Mean 119 Blood Pressure Mean [Left Arm] 98 85 Pulse Oximetry 100 98 98 Oxygen Delivery Method Room Air Room Air 11/26/18 23:27 Temperature Temperature Source Sepsis Recent Fever Within 48 Hours Sepsis New/Unexplained Change in Mental Status Sepsis Action Taken by Nursing Pulse Rate Pulse Rate [Right Finger] 63 Respiratory Rate 18 Respiratory Effort / Characteristics Respiratory Depth Blood Pressure Blood Pressure [Left Arm] 122/84 Blood Pressure Mean Blood Pressure Mean [Left Arm] 96 Pulse Oximetry 97 Oxygen Delivery Method Room Air GENERAL: Awake, alert, uncomfortable-appearing, in no distress HENT: Normocephalic, atraumatic. Oropharynx with dry mucous membranes and otherwise unremarkable. EYES: Normal conjunctiva. Sclera non-icteric. NECK: Supple. No nuchal rigidity. FROM. No JVD. RESPIRATORY: CTAB CARDIAC: Tachycardic rate, normal rhythm. Extremities warm and well perfused. Pu lses equal. ABDOMEN: Soft, non-distended. No tenderness to palpation. No rebound or guarding. No masses. RECTAL: Deferred. MUSCULOSKELETAL: Chest examination reveals no tenderness. The back is symmetr ical on inspection without obvious abnormality. There is no CVA tenderness to palpation. No joint edema. Mild right flank discomfort. No discrete tenderness. LOWER EXTREMITIES: Calves are equal size bilaterally and non-tender. No edema. No discoloration. NEURO: Normal sensorium. No sensory or motor deficits noted. SKIN: No rash or jaundice noted. Course 1950: Past medical records reviewed. The patient was evaluated in room C1. A complete history and physical exam was performed. 2315: Discussed the patient's case with Dr. Scanlon, [facility] Hospitalist. The patient will be evaluated for further management by her. Administered Medications Acetaminophen (Tylenol) 650 mg PO Q4H PRN PRN Reason: pain/fever Stop: 12/27/18 02:01 Last Admin: 11/27/18 05:08 Dose: 650 mg Documented by: [id number] Lactated Ringer's (Lr) 1,000 mls @ 125 mls/hr IV .Q8H IVAN Stop: 11/27/18 18:01 Last Admin: 11/27/18 02:41 Dose: 125 mls/hr Documented by: [id number] Ketorolac Tromethamine (Toradol) 15 mg IV Q6H PRN PRN Reason: Pain Stop: 12/02/18 02:01 Last Admin: 11/27/18 05:08 Dose: 15 mg Documented by: [id number] Morphine Sulfate (Morphine Sulfate) 2 mg IV Q4H PRN PRN Reason: Pain Stop: 12/11/18 02:01 Last Admin: 11/27/18 02:27 Dose: 2 mg Documented by: [id number] Discontinued Medications Acetaminophen (Ofirmev) 1,000 mg in 100 mls @ 400 mls/hr IV NOW STA Stop: 11/26/18 20:07 Last Infusion: 11/26/18 20:57 Dose: 0 mls/hr Documented by: [id number] Admin: 11/26/18 20:09 Dose: 400 mls/hr Documented by: [id number] Sodium Chloride (Nss 1000ml) 2,000 mls @ 999 mls/hr IV .Q2H1M ONE Stop: 11/26/18 21:53 Last Infusion: 11/26/18 22:16 Dose: 0 mls/hr Documented by: [id number] Admin: 11/26/18 20:10 Dose: 999 mls/hr Documented by: [id number] Ceftriaxone Sodium (Rocephin) 2,000 mg in 70 mls @ 140 mls/hr IV NOW STA Stop: 11/26/18 23:00 Last Infusion: 11/27/18 00:14 Dose: 0 mls/hr Documented by: [id number] Admin: 11/26/18 23:26 Dose: 140 mls/hr Documented by: [id number] Prochlorperazine (Compazine) 2 mls @ 1 mls/min IV ONE ONE Stop: 11/26/18 23:09 Last Admin: 11/26/18 23:56 Dose: 1 mls/min Documented by: [id number] Ioversol (Optiray 320 100ml) 90 ml IV ONCE PRN PRN Reason: Interaction Checking Stop: 11/30/18 21:35 Last Admin: 11/26/18 21:36 Dose: 90 ml Documented by: [id number] Ketorolac Tromethamine (Toradol) 15 mg IV NOW STA Stop: 11/26/18 19:54 Last Admin: 11/26/18 20:09 Dose: 15 mg Documented by: [id number] Ketorolac Tromethamine (Toradol) 15 mg IV NOW STA Stop: 11/26/18 21:33 Last Admin: 11/26/18 21:47 Dose: 15 mg Documented by: [id number] Morphine Sulfate (Morphine Sulfate) 6 mg IV NOW STA Stop: 11/26/18 19:54 Last Admin: 11/26/18 20:09 Dose: 6 mg Documented by: [id number] Morphine Sulfate (Morphine Sulfate) 6 mg IV NOW STA Stop: 11/26/18 21:33 Last Admin: 11/26/18 21:47 Dose: 6 mg Documented by: [id number] Morphine Sulfate (Morphine Sulfate) 6 mg IV NOW STA Stop: 11/26/18 22:32 Last Admin: 11/26/18 23:56 Dose: Not Given Documented by: [id number] Ondansetron HCl (Zofran) 4 mg IV NOW STA Stop: 11/26/18 20:01 Last Admin: 11/26/18 20:09 Dose: 4 mg Documented by: [id number] Ondansetron HCl (Zofran Odt) 4 mg PO NOW STA Stop: 11/26/18 22:18 Last Admin: 11/26/18 22:28 Dose: Not Given Documented by: [id number] Ondansetron HCl (Zofran) 4 mg IV Q4H PRN PRN Reason: Nausea Stop: 12/26/18 22:19 Last Admin: 11/26/18 22:28 Dose: 4 mg Documented by: [id number] Medical Decision Making Differential Diagnosis Differential diagnosis: Etiologies such as renal colic, appendicitis, diverticulitis, mesenteric ischemia, aortic pathology, infections, inflammatory bowel disease, PUD, biliary pathology, UTI, as well as others were entertained. Medical Records Attestation: I reviewed the patient's medical records. Home Medications Current Medication List: was personally reviewed by me Laboratory Data Attestation: I reviewed the patient's lab results. Result diagrams: 11/26/18 20:20 11/26/18 20:20 Lab Results 11/26/18 11/26/18 11/26/18 Range/Units 20:10 20:10 20:20 WBC 13.75 H (4.8-10.8) K/uL RBC 4.23 (4.2-5.4) M/uL Hgb 14.2 (12.0-16.0) g/dL POC Hgb (12.0-16.0) g/dl Hct 38.5 (37-47) % POC Hct (37-47) % MCV 91.0 (80-100) fL MCH 33.6 (25-34) pg MCHC 36.9 H (32-36) g/dL RDW Std Deviation 40.1 (36.4-46.3) fL RDW Coeff of David 11.9 (11.5-14.5) % Plt Count 208 (130-400) K/uL MPV 10.3 (7.4-10.4) fL Immature Gran % (Auto) 0.2 % Neut % (Auto) 76.4 % Lymph % (Auto) 14.5 % Woods % (Auto) 8.2 % Eos % (Auto) 0.6 % Baso % (Auto) 0.1 % Immature Gran # (Auto) 0.03 H (0.00-0.02) K/uL Neut # (Auto) 10.50 H (1.4-6.5) K/uL Lymph # (Auto) 2.00 (1.2-3.4) K/uL Woods # (Auto) 1.13 H (0.11-0.59) K/uL Eos # (Auto) 0.08 (0-0.5) K/uL Baso # (Auto) 0.01 (0-0.2) K/uL POC Sodium (135-144) mEq/L Sodium (136-145) mmol/L POC Potassium (3.3-5.0) mEq/L Potassium (3.5-5.1) mmol/L POC Chloride (101-112) mEq/L Chloride (98-107) mmol/L Carbon Dioxide (21-32) mmol/L POC Total CO2 (24-31) mEq/l Anion Gap (3-11) POC Anion Gap (16-25) mmol/L POC BUN (7-18) mg/dl BUN (7-18) mg/dl Creatinine (0.6-1.2) mg/dl POC Creatinine (0.6-1.3) mg/dl Est Cr Clr Drug Dosing ml/min Est GFR ( Amer) Est GFR (Non-Af Amer) BUN/Creatinine Ratio (10-20) Glucose (70-99) mg/dl POC Glucose (other) (70-99) mg/dl Lactate (0.4-2.0) mmol/L Calcium (8.5-10.1) mg/dl POC Ioniz Calcium Danny (1.12-1.32) mmol/l Total Bilirubin (0.2-1) mg/dl AST (15-37) U/L ALT (12-78) U/L Alkaline Phosphatase (45-117) U/L Total Protein (6.4-8.2) gm/dl Albumin (3.4-5.0) gm/dl Globulin (2.5-4.0) gm/dl Albumin/Globulin Ratio (0.9-2) Lipase (73-393) U/L HCG, Qual (Negative) Urine Color Yellow Urine Appearance Cloudy A (Clear) Urine pH 5.5 (4.5-7.5) Ur Specific [place] 1.020 (1.000-1.030) Urine Protein 2+ H (Negative) Urine Glucose (UA) Negative (Negative) Urine Ketones Negative (Negative) Urine Blood 3+ H (Negative) Urine Nitrite Negative (Negative) Urine Bilirubin Negative (Negative) Urine Urobilinogen Negative (Negative) Ur Leukocyte Esterase 2+ H (Negative) Urine WBC (Auto) >30 H (0-5) /hpf Urine RBC (Auto) 10-30 H (0-4) /hpf U Hyaline Cast (Auto) 10-30 H (0-5) /lpf U Epithel Cells (Auto) 5-10 H (0-5) /lpf Urine Bacteria (Auto) 4+ H (Negative) POC Ur Test NEG (NEG) 11/26/18 11/26/18 11/26/18 Range/Units 20:20 20:20 20:26 WBC (4.8-10.8) K/uL RBC (4.2-5.4) M/uL Hgb (12.0-16.0) g/dL POC Hgb 14.6 (12.0-16.0) g/dl Hct (37-47) % POC Hct 43 (37-47) % MCV (80-100) fL MCH (25-34) pg MCHC (32-36) g/dL RDW Std Deviation (36.4-46.3) fL RDW Coeff of David (11.5-14.5) % Plt Count (130-400) K/uL MPV (7.4-10.4) fL Immature Gran % (Auto) % Neut % (Auto) % Lymph % (Auto) % [place] % (Auto) % Eos % (Auto) % Baso % (Auto) % Immature Gran # (Auto) (0.00-0.02) K/uL Neut # (Auto) (1.4-6.5) K/uL Lymph # (Auto) (1.2-3.4) K/uL [place] # (Auto) (0.11-0.59) K/uL Eos # (Auto) (0-0.5) K/uL Baso # (Auto) (0-0.2) K/uL POC Sodium 140 (135-144) mEq/L Sodium 137 (136-145) mmol/L POC Potassium 3.5 (3.3-5.0) mEq/L Potassium 3.4 L (3.5-5.1) mmol/L POC Chloride 106 (101-112) mEq/L Chloride 105 (98-107) mmol/L Carbon Dioxide 25 (21-32) mmol/L POC Total CO2 23 L (24-31) mEq/l Anion Gap 7.0 (3-11) POC Anion Gap 16.0 (16-25) mmol/L POC BUN 8 (7-18) mg/dl BUN 10 (7-18) mg/dl Creatinine 0.82 (0.6-1.2) mg/dl POC Creatinine 0.7 (0.6-1.3) mg/dl Est Cr Clr Drug Dosing 91.9 ml/min Est GFR ( Amer) 112.9 Est GFR (Non-Af Amer) 97.4 BUN/Creatinine Ratio 11.5 (10-20) Glucose 97 (70-99) mg/dl POC Glucose (other) 99 (70-99) mg/dl Lactate (0.4-2.0) mmol/L Calcium 9.2 (8.5-10.1) mg/dl POC Ioniz Calcium Danny 1.20 (1.12-1.32) mmol/l Total Bilirubin 0.9 (0.2-1) mg/dl AST 12 L (15-37) U/L ALT 22 (12-78) U/L Alkaline Phosphatase 70 (45-117) U/L Total Protein 8.7 H (6.4-8.2) gm/dl Albumin 4.3 (3.4-5.0) gm/dl Globulin 4.4 H (2.5-4.0) gm/dl Albumin/Globulin Ratio 1.0 (0.9-2) Lipase 84 (73-393) U/L HCG, Qual Negative (Negative) Urine Color Urine Appearance (Clear) Urine pH (4.5-7.5) Ur Specific [place] (1.000-1.030) Urine Protein (Negative) Urine Glucose (UA) (Negative) Urine Ketones (Negative) Urine Blood (Negative) Urine Nitrite (Negative) Urine Bilirubin (Negative) Urine Urobilinogen (Negative) Ur Leukocyte Esterase (Negative) Urine WBC (Auto) (0-5) /hpf Urine RBC (Auto) (0-4) /hpf U Hyaline Cast (Auto) (0-5) /lpf U Epithel Cells (Auto) (0-5) /lpf Urine Bacteria (Auto) (Negative) POC Ur Test (NEG) 11/26/18 Range/Units 23:10 WBC (4.8-10.8) K/uL RBC (4.2-5.4) M/uL Hgb (12.0-16.0) g/dL POC Hgb (12.0-16.0) g/dl Hct (37-47) % POC Hct (37-47) % MCV (80-100) fL MCH (25-34) pg MCHC (32-36) g/dL RDW Std Deviation (36.4-46.3) fL RDW Coeff of David (11.5-14.5) % Plt Count (130-400) K/uL MPV (7.4-10.4) fL Immature Gran % (Auto) % Neut % (Auto) % Lymph % (Auto) % [place] % (Auto) % Eos % (Auto) % Baso % (Auto) % Immature Gran # (Auto) (0.00-0.02) K/uL Neut # (Auto) (1.4-6.5) K/uL Lymph # (Auto) (1.2-3.4) K/uL [place] # (Auto) (0.11-0.59) K/uL Eos # (Auto) (0-0.5) K/uL Baso # (Auto) (0-0.2) K/uL POC Sodium (135-144) mEq/L Sodium (136-145) mmol/L POC Potassium (3.3-5.0) mEq/L Potassium (3.5-5.1) mmol/L POC Chloride (101-112) mEq/L Chloride (98-107) mmol/L Carbon Dioxide (21-32) mmol/L POC Total CO2 (24-31) mEq/l Anion Gap (3-11) POC Anion Gap (16-25) mmol/L POC BUN (7-18) mg/dl BUN (7-18) mg/dl Creatinine (0.6-1.2) mg/dl POC Creatinine (0.6-1.3) mg/dl Est Cr Clr Drug Dosing ml/min Est GFR ( Amer) Est GFR (Non-Af Amer) BUN/Creatinine Ratio (10-20) Glucose (70-99) mg/dl POC Glucose (other) (70-99) mg/dl Lactate 1.1 (0.4-2.0) mmol/L Calcium (8.5-10.1) mg/dl POC Ioniz Calcium Danny (1.12-1.32) mmol/l Total Bilirubin (0.2-1) mg/dl AST (15-37) U/L ALT (12-78) U/L Alkaline Phosphatase (45-117) U/L Total Protein (6.4-8.2) gm/dl Albumin (3.4-5.0) gm/dl Globulin (2.5-4.0) gm/dl Albumin/Globulin Ratio (0.9-2) Lipase (73-393) U/L HCG, Qual (Negative) Urine Color Urine Appearance (Clear) Urine pH (4.5-7.5) Ur Specific [place] (1.000-1.030) Urine Protein (Negative) Urine Glucose (UA) (Negative) Urine Ketones (Negative) Urine Blood (Negative) Urine Nitrite (Negative) Urine Bilirubin (Negative) Urine Urobilinogen (Negative) Ur Leukocyte Esterase (Negative) Urine WBC (Auto) (0-5) /hpf Urine RBC (Auto) (0-4) /hpf U Hyaline Cast (Auto) (0-5) /lpf U Epithel Cells (Auto) (0-5) /lpf Urine Bacteria (Auto) (Negative) POC Ur Test (NEG) Imaging Data Radiologist's Impression: Radiology results as stated below per my review and the radiologist's interpretation: CT SCAN OF THE ABDOMEN AND PELVIS WITH IV CONTRAST CLINICAL HISTORY: Right flank pain. COMPARISON STUDY: Abdominal CT dated 05/24/2012. TECHNIQUE: Following the IV administration of 90 cc of Optiray 320, CT scan of the abdomen and pelvis is performed from the lung bases to the proximal femora. Images are reviewed in the axial, sagittal, and coronal planes. IV contrast was administered without complication. A dose lowering technique was utilized adhering to the principles of ALARA. CT DOSE: 278.75 mGy.cm FINDINGS: Lung bases: The heart is normal in size and without pericardial effusion. The lung bases are clear. Liver: The contrast-enhanced liver is normal in size, contour, and attenuation. There is no intrahepatic biliary ductal dilatation. The hepatic veins and portal veins are patent. Mild periportal edema is likely related to hydration status. Gallbladder: Unremarkable. Spleen: Normal in size and attenuation. Pancreas: Unremarkable. Adrenal glands: Unremarkable. Kidneys: The contrast enhanced kidneys are normal in size and without hydronephrosis. There is heterogeneous enhancement of the right kidney with a striated nephrogram. Mild urothelial thickening and enhancement is noted in the right renal pelvis and involving the right ureter. The left kidney enhances homogeneously. Abdominal vasculature: The abdominal aorta is normal in course and caliber. Bowel: The small bowel and colon are normal in course and caliber. The appendix is normal as visualized. Peritoneum: There is no intraperitoneal free air or abdominal ascites. Lymphadenopathy: None. Pelvic viscera: The bladder wall appears thickened and hyperemic and there is pericystic inflammation. The uterus and adnexa are normal as visualized. There are bilateral ovarian follicles. Nonspecific free fluid is noted in the cul-de-sac. Skeletal structures: No lytic or blastic lesions are seen. IMPRESSION: 1. Findings suggest cystitis and right-sided pyelonephritis. Correlation with clinical findings and urinalysis will be required. 2. Nonspecific free fluid in cul-de-sac is likely within physiologic limits. Electronically signed by: Isrrael Mathew M.D. 11/26/2018 10:19 PM Blood Pressure Blood Pressure Findings: Elevated blood pressure Blood Pressure Disposition: further management by hospitalist SAMMY Narrative The patient is a pleasant 20-year-old woman with a past medical history of bipolar disorder who presents emergency department with right flank pain in setting of having dysuria earlier in the week per hpi. On arrival patient is uncomfortable but no acute distress, afebrile with HR 100s and otherwise stable vital signs. On exam the patient has mild right flank discomfort without discrete tenderness. WBC 13.7. H/H and platelets within normal limits. Chemistry without acidosis. Lactate within normal limits. LFTs unremarkable. UA with 2+ leuk esterase, WBCs and 4+ bacteria with minimal epithelial cells that is suggestive of UTI. CT abdomen pelvis demonstrates heterogeneous enhancement of the right kidney with a striated nephrogram. Mild urothelial thickening and enhancement is noted in the right renal pelvis and involving the right ureter. Findings are consistent with pyelonephritis. Upon reevaluation patient was still having persistent pain despite IV Tylenol, Toradol and repeat dose of morphine. She also was having nausea and vomiting despite antiemetics. Thus given the patient's difficulty in tolerating oral intake reasonable to admit the patient for further management of her pyelonephritis. Case was discussed with Dr. Scanlon, [facility] hospitalist, who will evaluate the patient for admission. Impression & Plan Pyelonephritis, Leukocytosis, Nausea & vomiting, Acute right flank pain Discharge Plan Visit Data *Final* Discharge Date/Time: 11/27/18 01:48 Chief Complaint: Kidney Stone Stated Complaint: KIDNEY STONE ED Provider: Enoc Fuentes Discharge Problem: Pyelonephritis, Leukocytosis, Nausea & vomiting, Acute right flank pain Patient Disposition: Admitted As Inpatient Discharge Instructions Interventions: ED Discharge Assessment Last Done: 11/27/18 01:48 The scribe's documentation has been prepared under my direction and personally reviewed by me in its entirety. I confirm that the note above accurately reflects all work, treatment, procedures, and medical decision making performed by me.
[2018-11-27] MEDS: KETOROLAC TROMETHAMINE 15 MG/ML VIAL IV PRN ×3 (05:08→23:28)
[2018-11-27] MEDS: ACETAMINOPHEN 325 MG TAB PO PRN ×4 (05:08→21:06)
[2018-11-27] MEDS: ONDANSETRON INJ 2 MG/ML 2 ML VIAL IV PRN ×2 (15:29→21:12)
--- NOTE | 2018-11-27 19:18 | History & Physical Bridge Note ---
Date of Service November 27, 2018 History & Physical Bridge Note I have examined the patient, reviewed the History & Physical and in the interval since the performance of the History & Physical I have noted the following changes of clinical significance: Patient still spiking fevers today and having significant pain and nausea which is now improved with pain medication and antiemetics. She is completed 4 L of IV fluids and is making plenty of urine. She tolerated regular food for dinner. Finally starting to feel a little bit better than admission last night. Her blood cultures 1 out of 2 are growing gram-negative bacilli Urine culture also growing gram-negative bacilli Vitals reviewed Gen: AAOx3, NAD HEENT: Anicteric sclerae, EOMI CV: RRR no mgr nl S1S2 Pulm: CTAB no wcr Abd: +BS soft positive tenderness palpation in the right side of the abdomen and positive CVA tenderness, ND no masses or hernias Ext: No edema, 2+ DP pulses Skin: No rashes, warm/dry Neuro: Full strength throughout 28-year-old female with history of bipolar disorder, thyroid goiter, here with acute pyelonephritis, sepsis, and bacteremia -Repeat blood cultures now -Continue acetaminophen, Toradol as needed for pain and fevers, morphine as needed for severe pain -Continue ceftriaxone -Follow CBC, BMP in the morning
[2018-11-27] MEDS: cefTRIAXone SODIUM 1,000 MG in DEXTROSE 5% 50 ML IV SCH (21:08)
[2018-11-28] MEDS: MoRPHine SULFATE 2 MG/ML CARP IV PRN ×4 (05:01→23:49)
[2018-11-28 05:33] LABS: Basophils # (auto) 0.01 K/uL (0-0.2); Basophils % (auto) 0.1 %; Eosinophils # (auto) 0.02 K/uL (0-0.5); Eosinophils % (auto) 0.2 %; Hematocrit (blood only) 32.6 % (37-47); Hemoglobin 11.5 g/dL (12.0-16.0); Immature Granulocytes # (auto) 0.03 K/uL (0.00-0.02); Immature Granulocytes % (auto) 0.2 %; Lymphocytes % (auto) 9.7 %; Mean Corpuscular Hemoglobin 32.3 pg (25-34); Mean Corpuscular Hgb Conc 35.3 g/dL (32-36); Mean Corpuscular Volume 91.6 fL (80-100); Mean Platelet Volume 10.2 fL (7.4-10.4); Monocytes # (auto) 1.18 K/uL (0.11-0.59); Monocytes % (auto) 9.5 %; Neutrophils # (auto) 9.94 K/uL (1.4-6.5); Neutrophils % (auto) 80.3 %; Platelet Count 136 K/uL (130-400); RDW Coefficient of Variation 11.9 % (11.5-14.5); RDW Standard Deviation 40.6 fL (36.4-46.3); Red Blood Count 3.56 M/uL (4.2-5.4); White Blood Count 12.38 K/uL (4.8-10.8)
[2018-11-28 06:08] LABS: BUN Creatinine Ratio 10.6 (10-20); Calcium 8.3 mg/dl (8.5-10.1); Creatinine Clr Calc Pharmacy 112.5 ml/min; Est GFR (African American) 138.6; Est GFR (Non-African American) 119.6
[2018-11-28 06:14] LABS: Potassium 3.4 mmol/L (3.5-5.1)
[2018-11-28] MEDS: KETOROLAC TROMETHAMINE 15 MG/ML VIAL IV PRN (07:02)
[2018-11-28] MEDS: ACETAMINOPHEN 325 MG TAB PO PRN (09:46)
[2018-11-28] MEDS ORDERED: PROMETHAZINE HCL 12.5 MG in SODIUM CHLORIDE 0.9% 50 ML IV PRN (11:23)
[2018-11-28] MEDS ORDERED: KETOROLAC TROMETHAMINE 15 MG/ML VIAL IV ONE (11:53)
--- NOTE | 2018-11-28 11:54 | Hospitalist Progress Note ---
Date of Service November 28, 2018 Assessment & Plan (1) Pyelonephritis: Presents with UTI symptoms x 2-3 weeks followed by onset of severe right sided flank and abdominal pain, fevers, tachycardia, leukocytosis, sepsis with acute pyelonephritis. Now with GNR bacteremia/septicemia as well. No fevers since yesterday afternoon Still having a lot of expected right flank and abdominal pain CT abd/pel confirms acute pyelo on the right, no stones Ur cx growing E. coli pansensitive BCxs 1/2 sets with GNR, ID pending -Repeat blood cultures-NGTD at 24 hr adi -Continue acetaminophen, and will increase dose of Toradol to 30mg IV q6h as needed for pain and fevers, morphine as needed for severe pain -Continue ceftriaxone 1 gm IV q24hrs and eventually will convert to po abx once confirm GNR in Blood cx are same E. coli -Follow CBC, BMP in the morning (2) Septicemia: as above -follow BCxs -will need 2 weeks total of abx (3) Bipolar 1 disorder: not currently on treatment and reports her mood is good (4) Nausea & vomiting: -continue ZOfran -add phenergan prn as ZOfran did not help much secondary to acute pyelo (5) DVT prophylaxis: SCDs -encouraged ambulation today Dispo-remain in hospital until pain and nausea better controlled, awaiting blood cultures ID Subjective Still having a lot of right flank pain and right sided abdominal pain. Is sweating but no fevers today, taking Tylenol, toradol. Toradol is not lasting long enough and morphine only lasts one hour. Still with some nausea and vomited last night. Her urine is brownish in color and has "chunks" of brown in it at times. Denies CP, SOB. Review of Systems Review of Systems: All systems reviewed & are unremarkable except as noted in HPI & below Physical Exam Physical Exam: Vitals reviewed Gen: AAOx3, NAD HEENT: Anicteric sclerae, EOMI CV: RRR no mgr nl S1S2 Pulm: CTAB no wcr Abd: +BS soft positive tenderness palpation in the right side of the abdomen and positive CVA tenderness, ND no masses or hernias Ext: No edema, 2+ DP pulses Skin: No rashes, warm/dry Neuro: Full strength throughout Results & Data Vital Signs (Past 12 Hours) Vital Signs Temp Pulse Resp BP Pulse Ox 11/28/18 11:33 37.2 C 11/28/18 07:17 37.4 C 86 16 118/75 97 Laboratory Results 11/28/18 11/28/18 Range/Units 05:05 05:05 WBC 12.38 H (4.8-10.8) K/uL RBC 3.56 L (4.2-5.4) M/uL Hgb 11.5 L (12.0-16.0) g/dL Hct 32.6 L (37-47) % MCV 91.6 (80-100) fL MCH 32.3 (25-34) pg MCHC 35.3 (32-36) g/dL RDW Std Deviation 40.6 (36.4-46.3) fL RDW Coeff of David 11.9 (11.5-14.5) % Plt Count 136 (130-400) K/uL MPV 10.2 (7.4-10.4) fL Immature Gran % (Auto) 0.2 % Neut % (Auto) 80.3 % Lymph % (Auto) 9.7 % [place] % (Auto) 9.5 % Eos % (Auto) 0.2 % Baso % (Auto) 0.1 % Immature Gran # (Auto) 0.03 H (0.00-0.02) K/uL Neut # (Auto) 9.94 H (1.4-6.5) K/uL Lymph # (Auto) 1.20 (1.2-3.4) K/uL [place] # (Auto) 1.18 H (0.11-0.59) K/uL Eos # (Auto) 0.02 (0-0.5) K/uL Baso # (Auto) 0.01 (0-0.2) K/uL Sodium 136 (136-145) mmol/L Potassium 3.4 L (3.5-5.1) mmol/L Chloride 106 (98-107) mmol/L Carbon Dioxide 22 (21-32) mmol/L Anion Gap 8.0 (3-11) BUN 7 (7-18) mg/dl Creatinine 0.67 (0.6-1.2) mg/dl Est Cr Clr Drug Dosing 112.5 ml/min Est GFR ( Amer) 138.6 Est GFR (Non-Af Amer) 119.6 BUN/Creatinine Ratio 10.6 (10-20) Glucose 88 (70-99) mg/dl Calcium 8.3 L (8.5-10.1) mg/dl BCxs 1/2 GNR Repeat BCx NGTD Ur cx E. coli pansens PG Care Time/CCT Total # of Minutes Spent Total Time Spent with Patient: Total time spent is greater than 50% in coordination of care (as documented) at patient's floor/unit and/or counseling patient:
[2018-11-28] MEDS: ONDANSETRON INJ 2 MG/ML 2 ML VIAL IV PRN (15:42)
[2018-11-28] MEDS: KETOROLAC 30 MG/ML VIAL IV PRN (19:53)
[2018-11-28] MEDS: cefTRIAXone SODIUM 1,000 MG in DEXTROSE 5% 50 ML IV SCH (21:12)
--- NOTE | 2018-11-28 21:59 | Medical Student H&P ---
Date of Service November 28, 2018 Assessment & Plan Treatment Plan (1) Pyelonephritis: Patient afebrile, hemodynamically stable. She continues to have severe pain and nausea. She has been taking Morphine 2 mg q4 PRN and Toradol 15mg q6 PRN; however, she states that her pain remains at a 6 out of 10. Consider increasing Toradol. Follow cultures. Continue Ceftriaxone 1gm IV daily. Switch from ondansetron to promethazine for better control of nausea. Tylenol PRN to reduce fever. (2) Anemia - Hgb 14.2 admission; today Hgb is 11.5. Likely from hematuria. Continue to monitor Hgb; consider IV iron. (3) Bipolar Disorder Patient does not currently take medication and feels her symptoms are well- managed without treatment. Monitor for symptoms of depression and hieu. History of Present Illness Chief Complaint: Right flank pain radiating to the back Primary Care Provider: Ceasar Henry Jr, DO Ms. Farrar is a 28-year-old generally healthy female with a history of bipolar disorder. Approximately 2 weeks ago, she had 'a few days of stinky, heavy, and dark ' urine. She states that she is typically dehydrated as she does not drink much water during the day and therefore did not think much of the dark urine. She did not endorse any symptoms of dysuria, urgency, or frequency at this time and the dark-colored urine resolved. She had no other symptoms until Monday, 11/24, when she woke up with a general feeling of malaise and some 'annoying discomfort' of her right flank which she described as feeling sore. On Monday the pain progressed and she started to have more intense malaise but no fever. She went to Urgent Care and was prescribed nitrofurantoin for a UTI. As the pain intensified, she presented to the ED later on Monday, 11/26, with 'excruciating' right flank pain, fever, and chills. She now endorses hematuria with both red and dark brown blood, urinary urgency, frequency, and dysuria. She states that she feels that there is pus in her urine because of its odor. She does not endorse burning upon urination. Today she states that her right flank is constantly 'sore' with occasional shoot ing/stabbing pain to the back. She states that the morphine and toradol are helping bring her pain down from an 8 out of 10 to a 6 out of 10. She endorses anorexia, only eating about 3 bites of her breakfast this morning before feeling nauseous. She has not had a bowel movement since Monday, 11/25 though she states she hasn't really been eating since Monday though she has been drinking 'a lot' of water. She endorses chills and diaphoresis. Allergies Allergy/AdvReac Type Severity Reaction Status Date / Time No Known Allergies Allergy Verified 11/26/18 19:45 Home Medications Home Medications Medication Instructions Recorded Confirmed Type nitrofurantoin macrocrystal 100 mg PO BID 11/26/18 11/26/18 History Past Med/Surg History Medical History ASCUS with positive high risk HPV cervical Goiter H/O varicella Positive GBS test Surgical History H/O oral surgery History of conization of cervix History of lingual frenotomy S/P dilation and curettage S/P tonsillectomy Family History Mother Colorectal cancer Thyroid disease Grandmother (Maternal) Lung cancer Father Kidney stones Other Cleft palate Social History Preferred Language: Yi Communication Ability: Effective Digital Content Coordinator Required: No Beliefs That Will Affect Care: None Current Living Situation: Family and Significant Other Current Living Situation Comment: Home with Fiance & Child Other Information That Helps Us Care for You: No Feels Safe at Home: Yes Safety Concerns: Feels Safe At This Time Smoking Status: Current some day smoker Tobacco Type: cigarettes ; packs per day: 0.5 ; Cigarettes Per Day: 3 ; Do You Dip or Chew Tobacco: No ; Second Hand Exposure: No ; Tobacco Cessation Education Requested by Patient: No Hx Alcohol Use: Yes (Social) Alcohol Intake Frequency: Holidays/Special Occasions Hx Substance Use: No Review of Systems + chills, + sweats, + malaise and + anorexia + dysuria, + urinary frequency, + urinary urgency, + hematuria and + flank pain Physical Exam Physical Exam: General Appearance: Patient is in no acute distress. She is largely resting comfortably but occasionally cringes and repositions herself in response to the radiating flank pain. She is friendly and cooperative. Respiratory: Lungs clear bilaterally to auscultation. No wheezes, rhonci, or rales. Patient is not short of breath at rest. Cardiovascular: Regular rate and rhythm. No rubs, murmurs, or gallops. No lower extremity edema. Pedal pulses appreciated. Gastrointestinal: Abdomen tender to palpation in the right upper and lower quadrants. No organomegaly appreciated. Bowel sounds were normoactive. Genitourinary: CVA tenderness appreciated. Neurological: Patient awake and oriented x 3. Psychiatric: Thought pattern was logical and organized. Results & Data Vital Signs (Past 12 Hours) Vital Signs Temp Pulse Resp BP Pulse Ox 11/28/18 16:10 37.0 C 88 17 119/78 98 11/28/18 11:33 37.2 C Laboratory Results WBC 12.38 Hgb 11.5 Hct 32.6 Neutrophils 9.94 Monocytes 1.18 Code Status & VTE Plan VTE Prophylaxis Plan VTE Prophylaxis will be ordered: Yes
[2018-11-29] MEDS: KETOROLAC 30 MG/ML VIAL IV PRN ×2 (05:40→12:09)
[2018-11-29 06:51] LABS: Basophils # (auto) 0.01 K/uL (0-0.2); Basophils % (auto) 0.1 %; Eosinophils # (auto) 0.07 K/uL (0-0.5); Hematocrit (blood only) 32.3 % (37-47); Hemoglobin 11.2 g/dL (12.0-16.0); Immature Granulocytes # (auto) 0.01 K/uL (0.00-0.02); Immature Granulocytes % (auto) 0.1 %; Lymphocytes # (auto) 1.27 K/uL (1.2-3.4); Lymphocytes % (auto) 17.9 %; Mean Corpuscular Hemoglobin 31.9 pg (25-34); Mean Corpuscular Hgb Conc 34.7 g/dL (32-36); Monocytes # (auto) 0.83 K/uL (0.11-0.59); Monocytes % (auto) 11.7 %; Neutrophils % (auto) 69.2 %; Platelet Count 140 K/uL (130-400); RDW Coefficient of Variation 12.1 % (11.5-14.5); RDW Standard Deviation 41.3 fL (36.4-46.3); Red Blood Count 3.51 M/uL (4.2-5.4); White Blood Count 7.09 K/uL (4.8-10.8)
[2018-11-29 07:03] LABS: BUN Creatinine Ratio 18.3 (10-20); Calcium 8.6 mg/dl (8.5-10.1); Creatinine Clr Calc Pharmacy 114.2 ml/min; Est GFR (African American) 139.3; Est GFR (Non-African American) 120.2; Potassium 3.3 mmol/L (3.5-5.1)
[2018-11-29] MEDS: ACETAMINOPHEN 325 MG TAB PO PRN (07:07)
[2018-11-29] MEDS: MoRPHine SULFATE 2 MG/ML CARP IV PRN (07:07)
[2018-11-29] MEDS ORDERED: POTASSIUM CHLORIDE 20 MEQ TABCR PO STA (08:53)
--- NOTE | 2018-11-29 10:06 | Medical Student Progress Note ---
Date of Service November 29, 2018 Assessment & Plan Treatment Plan (1) Pyelonephritis: Patient currently afebrile with temperature of 36.6 C (Tmax = 39.3 C) , hemodynamically stable. She continues to have severe pain and nausea. She has been taking Morphine 2 mg IV q4 PRN and Toradol 30 mg IV q6 PRN and this has reduced her pain to a 4 out of 10. Initiate blood cultures show pansensitive E. coli; however, most recent cultures from 11/27 show no growth. Continue pain management regimen. Transition to PO for discharge. Continue Ceftriaxone 1gm IV daily. Transition to PO antibiotic such as cefotaxime or ciprofloxacin for discharge. Acetaminophen 650 mg PO q4 PRN to reduce fever. (2) Constipation - Patient has not moved her bowels since Monday, 11/26. However, just began eating again last evening. Consider colace PRN. (3) Anemia - Hgb 14.2 admission; today Hgb is 11.2. Likely from hematuria. Continue to monitor Hgb; consider IV iron. (4) Bipolar Disorder Patient does not currently take medication and feels her symptoms are well- managed without treatment. Monitor for symptoms of depression and hieu. Subjective Ms. Farrar is a 28-year-old generally healthy female with a history of bipolar disorder. She presented to the ED later on Monday, 11/26, with 'excruciating' right flank pain, fever, and chills after displaying UTI symptoms 2 weeks earlier. Today, she states that she continues to pain right flank pain; however, with the regimen of morphine and tramadol the pain is down to a 4 out 10. After sleeping from 12AM - 5AM, she woke up in a cold sweat and her pain was a 7-8 out of 10 after not taking medications over this period of time. She states that the constant flank soreness is still present but the sharp, stabbing pain that radiates to her back in less frequent and more subtle. Her appetite and nausea have improved; she was able to eat a whole sandwich last night as well as a bowl of cereal this morning. She was not had a bowel movement since 11/25. She continues to endorse chills. Overall, she states that she feels 70% improved. Review of Systems Constitutional: + chills, + sweats and + malaise Genitourinary: + dysuria, + urinary frequency, + urinary urgency, + hematuria and + flank pain Psychiatric: no problem reported Physical Exam Physical Exam: General Appearance: Patient is in no acute distress and is resting comfortably in bed upon exam. She is friendly and cooperative. Respiratory: Lungs clear bilaterally to auscultation. No wheezes, rhonci, or rales. Patient is not short of breath at rest. Cardiovascular: Regular rate and rhythm. No rubs, murmurs, or gallops. No lower extremity edema. Pedal pulses appreciated. Gastrointestinal: Abdomen tender to palpation in the right upper and lower quadrants. No organomegaly appreciated. Bowel sounds were hyperactive. Genitourinary: CVA tenderness appreciated. Neurological: Patient awake and oriented x 3. Psychiatric: Thought pattern was logical and organized. Patient states that mood is improved and affect is consistent wt stated mood. Results & Data Vital Signs (Past 12 Hours) Vital Signs Temp Pulse Resp BP Pulse Ox 11/29/18 08:07 36.6 C 75 16 104/70 99 11/28/18 23:26 36.8 C 70 18 113/74 98 Laboratory Results WBC 7.09 RBC 3.51 Hgb 11.2 Hct 32.3 Monocytes 0.83 Diagnostic Findings Blood cultures from 11/27 show no growth in either the aerobic nor anaerobic bottles.
--- NOTE | 2018-11-29 15:14 | Discharge Summary ---
Date of Service November 29, 2018 Admission HPI Per Admitting Provider Beatrice Farrar is a pleasant 28yo C female presenting with pyelonephritis. She had a few days of increased urinary frequency, no dysuria/hematuria. She developed right flank pain on 11/25/18 which progressively worsened. This AM her pain was very severe, 11/15. She also had nausea with multiple episodes of non-bloody/non-bilious vomiting, chills/sweats, elevated body temperature to 100. She tried to go to work but was unable to complete the day due to her symptoms. She was started on Nitrofurantoin yesterday, took 1 dose thus far. On arrival to the ER she was found to be afebrile, slightly tachycardic at 102 bpm and hypertensive at 159/100. She had severe pain and nausea requiring multiple doses of IV pain medication and anti-emetics. Pain presently improved. No additional complaints at this time. No fevers/chill/sweats, no headache/chest pain/SOB/palpitations/abdominal pain/diarrhea/constipation ER Course: Morphine 6mg IV x 2, Toradol 15mg IV x 2, Tylenol 1gm IV x 1, Zofran 4mg IV x 2, Prochlorperazine, Ceftriaxone x 2gm, NSS Principal Diagnosis Acute pyelonephritis, E. coli septicemia Discharge Exam Constitutional WD/WN, vitals as above Eyes + anicteric sclerae ENMT external ear and nose normal, oropharynx normal Neck trachea midline, no thyromegaly Respiratory normal respiratory effort, lungs clear to auscultation Cardiovascular RRR, no murmur, no edema Gastrointestinal (Abdomen) Inspection/Auscultation: abdomen normal to inspection and normal bowel sounds Percussion/Palpation: + abdomen tender (RLQ and right flank, +R CVA tenderness) and abdomen soft; no guarding, abdomen not rigid, no hepatosplenomegaly, no hernia and no abdominal mass Musculoskeletal Extremities: extremities normal to inspection; no cyanosis and no clubbing Skin no rashes, warm and dry Neurologic moves all extremities and awake; no focal motor deficits Psychiatric A+Ox3, euthymic affect Discharge Data Allergies Allergy/AdvReac Type Severity Reaction Status Date / Time No Known Allergies Allergy Verified 11/26/18 19:45 Consultations 11/26/18 23:08 ED Decision to Admit Stat Ordered Studies 11/26/18 20:44 CT abd pelvis IV con only Stat Hospital Course (1) Pyelonephritis: Presented with UTI symptoms x 2-3 weeks followed by onset of severe right sided flank and abdominal pain, fevers, tachycardia, leukocytosis, sepsis with acute pyelonephritis. Now with E. coli bacteremia/septicemia as well. No fevers in 2 days, still with sweats, taking APAP, toradol Still having a lot of expected right flank and abdominal pain but is slowly improving, taking pain meds less often CT abd/pel confirms acute pyelo on the right, no stones HCG negative Ur cx growing E. coli pansensitive BCxs 1/2 sets with E. coli, pansensitive, repeat BCxs NGTD -Continue pain control upon dc with ibuprofen and Percocet prn -Received ceftriaxone 1 gm IV q24hrs x 3 and will convert to po Cipro to finish out 14 day course (2) Septicemia: as above, fevers resolved, leukocytosis resolved now, septicemia resolved -follow BCxs after discharge but NGTD on repeat BCxs -will need 2 weeks total of abx (3) Bipolar 1 disorder: not currently on treatment and reports her mood is good (4) Nausea & vomiting: -received ZOfran and phenergan secondary to acute pyelo -now resolved, tolerating po at time of discharge (5) DVT prophylaxis: SCDs Dispo-stable for dc to home Total Time Total Time Spent Total Time Spent (In Minutes): >30 min Total Time Includes: Examination of the Patient, Discharge Planning and Medication Reconciliation Discharge Plan Discharge Items Patient Disposition: Home - Self-Care Reason For Visit: PYELONEPHRITIS, SEPSIS Discharge Diagnosis: Acute pyelonephritis, E. coli Septicemia Condition on Discharge: Fair Activity: As commented below Lifting: Gradually increase as tolerated Bathing: No limitations Exercise/Sports: Gradually increase as tolerated Driving/Machine Use: No driving while taking oxycodone Non-emergency contact: Primary Care Provider Call non-emergency contact if: you have any medication questions, your symptoms worsen, your pain is not controlled, your pain is worsening, your pain is unusual for you, your pain is concerning for you, you have a fever and your temperature is above 101.5 Follow-up/Referrals: Ceasar Henry Jr, [Primary Care Provider] - 12/03/18 11:00 am (Please, follow up with Dr. Henry on MondayDecember 03 at 11:00 am. *If you need to change this appointment, call the office at [phone].) Diet: Regular Addtl Attending Provider Instructions: Please finish out the course of antibiotics with Cipro 500mg twice a day for 11 more days. You can take the ibuprofen 800mg three times a day on a scheduled basis, and use the Percocet as needed for breakthrough pain. Please follow up with your PCP as scheduled for you. Pending Studies at Discharge: Yes Studies:: Final blood cultures Stand-Alone Forms: My [facility], Opioid Pain Management, Work/School Release (Inpt), Smoking Cessation Medications and DC Order Prescriptions: New ibuprofen 800 mg tablet 800 mg PO Q8H Qty: 30 RF: 0 oxycodone-acetaminophen 5-325 mg tablet 1 - 2 tab PO Q6H PRN (Reason: severe pain) Qty: 20 RF: 0 ciprofloxacin HCl [Cipro] 500 mg tablet 500 mg PO BID Qty: 22 RF: 0 Continued nitrofurantoin macrocrystal 100 mg Capsule 100 mg PO BID RF: 0 Discharge Orders: Discharge Order (Routine); Ordered 11/29/18 Ordered By: Kathya Jimenez Admission Data Admit Date/Time: 11/28/18 11:19 Attending Provider: Kathya Jimenez Admit Provider: Zina Scanlon Primary Care Provider: Ceasar Henry Jr Other Providers: Zina Scanlon Other Interventions: Discharge Summary Assessment (RN) Last Done: 11/29/18 17:20 DC Date/Time DO NOT enter until pt leaves facility: 11/29/18 17:27
== END 2018-11-29 17:27 | disposition home or self-care (01) | DRG 872 ==
LOC: ED 18:45 → 3W 18:45 → SUATTDRO 11-27 00:43 → 3W 11-27 01:48